=== PATIENT | female | born 1960 | race Two or more races ===

== ENCOUNTER 2019-05-13 07:55 | Outpatient (CLI) | payer OTHER | END 2019-05-13 08:00 | disposition home or self-care (01) | LOC: SONOGRAMA 07:55 | DX: E04.2 Nontoxic multinodular goiter (principal) ==

== ENCOUNTER 2021-06-28 08:00 | Outpatient (CLI) | payer OTHER | END 2021-06-28 08:30 | disposition home or self-care (01) | LOC: PPH VACUNA 08:00 | DX: Z23 Encounter for immunization (principal) ==